=== PATIENT | female | born 1955 | race Caucasian/White ===

== ENCOUNTER → 2018-09-26 12:43 | Outpatient (CLI) | payer MEDICARE, OTHER, SELFPAY ==
--- NOTE | 2018-09-26 12:47 | CI_ITS ---
Cerebrovascular Exam Indications: Follow-up carotid 433.10. IMPRESSIONS 1. The bilateral vertebral arteries are patent with normal antegrade flow. 2. Study suggests less than 20% stenosis involving the right internal carotid artery. No change from the study of 31-Jul-2012. 3. Study suggests less than 20% stenosis involving the left internal carotid artery. No change from the study of 31-Jul-2012. History: Risk factors: Hypertension. Hyperlipidemia. Carotid duplex study. Complete study and Doppler flow study including spectral analysis, color and quiñones scale imaging. Height: Height: 167.6cm. Height: 66in. Weight: Weight: 63.5kg. Weight: 139.7lb. Body mass index: BMI: 22.6kg/m^2. Body surface area: BSA: 1.72m^2. Location: Vascular laboratory. Patient status: Outpatient. Tables: Arterial flow: + +--------+--------+ Location V sys V ed + +--------+--------+ Right CCA - proximal 91.9cm/s 19.6cm/s + +--------+--------+ Right CCA - distal 77cm/s 20.2cm/s + +--------+--------+ Right ECA 87.1cm/s 14.8cm/s + +--------+--------+ Right ICA - proximal 81.9cm/s 20.2cm/s + +--------+--------+ Right ICA - mid 81.4cm/s 20.2cm/s + +--------+--------+ Right ICA - distal 65.8cm/s 18.2cm/s + +--------+--------+ Right vertebral 48.5cm/s 10.5cm/s + +--------+--------+ Left CCA - proximal 80.9cm/s 22.8cm/s + +--------+--------+ Left CCA - distal 84.9cm/s 27.5cm/s + +--------+--------+ Left ECA 86.8cm/s 18.5cm/s + +--------+--------+ Left ICA - proximal 80.8cm/s 26.2cm/s + +--------+--------+ Left ICA - mid 93.9cm/s 32.8cm/s + +--------+--------+ Left ICA - distal 95.6cm/s 36.6cm/s + +--------+--------+ Left vertebral 44.8cm/s 18cm/s + +--------+--------+ Velocity ratios: + + + + + + Right, V sys Right, V ed Left, V sys Left, V ed + + + + + + Max ICA/dist CCA 1.06 1 1.13 1.33 + + + + + + (Report amended ) Electronically signed by: Frankie Ash [id number]
== END ==
PROVIDERS: PCP Family Medicine; Visit Provider Family Medicine
DX: I65.23 Occlusion and stenosis of bilateral carotid arteries (principal)
CPT/HCPCS: 93880